=== PATIENT | male | born 2000 | race Caucasian/White ===

== ENCOUNTER 2023-10-02 00:18 | Emergency (ER) | payer OTHER, SELFPAY ==
[2023-10-02 00:26] VITALS: BP 130/60
[2023-10-02 00:38] VITALS: BMI 24.5
--- NOTE | 2023-10-02 00:41 | ED.GENMED ---
History of Present Illness
General
Chief Complaint: Flank Pain
Source: patient
Exam Limitations: none
Time Seen by Provider: 10/02/23 00:31
Travel History
Have you had any contact with someone who has COVID-19?: No
Do you have any symptoms of coronavirus? Fever > 100 degrees, chills, cough, shortness of breath, sore throat, loss of taste or smell, muscle aches, or headache?: No
History of Present Illness
History of Present Illness:
This is a 23 year old male that comes in with c/o right lower abd pain. States that he was just handing out with friends an he started with lower back pain. State that the pain migrated and went into his testicles and then back up into the right
lower abd. States that it was a stabling pain and he was nauseated. Denies any history of renal calculus. Denies any fever, chills, chest pain, SOB, vomiting, diarrhea, headache, dizziness, urinary burning.
Past History
Past History
ED Past Medical History: GERD and Other (Left hand fracture, right clavicle fracture)
ED Past Surgical History: Other (Myringotomy tubes)
Social History
Tobacco: Smoker
Alcohol: Occasional
Drug: None
Personal: Single
Living: with family
Review of Systems
Review of Systems
All Other Systems: ROS reviewed and negative except as documented in HPI and ROS
Constitutional: Reports no symptoms; Denies fever or chills
EENT: Reports no symptoms
Respiratory: Reports no symptoms; Denies cough or trouble breathing
Cardiac: Reports no symptoms; Denies chest pain
ABD/GI: Reports abdominal pain and nausea; Denies vomiting or diarrhea
: Reports no symptoms; Denies dysuria, frequency or urgency
Musculoskeletal: Reports no symptoms
Skin: Reports no symptoms
Neurological: Reports no symptoms; Denies dizzy or headache
Psychiatric: Reports no symptoms
Phy Exam
General Physical Exam
General Presentation: mild distress
General age: appears stated age
General Skin: warm and dry
General Habitus: normal
General Mental: alert
General Hydration: appears well hydrated
ENT Exam
ENT Exam: TM's normal, pharynx normal and neck supple
Eye Exam
Eye Exam: EOMI
Cardiovascular Exam
Cardiovascular Exam: regular rate/rhythm, no edema, no murmur and normal peripheral pulses
Pulmonary Exam
Pulmonary Exam: lungs clear, no respiratory distress, no rales, chest non tender, no crackles, no rhonchi, no wheezing and no cough
Gastrointestinal Exam
Gastrointestinal Exam: normal bowel sounds, soft, no organomegaly, no pulsatile mass, non distended and tender (Right lower quadrant tenderness with palpation. Negative for rebound tenderness)
Musculoskeletal Exam
Musculoskeletal Exam: full ROM and no edema
Skin Exam
Skin Exam: normal color, warm/dry, no rash and no petechia
Psychiatric Exam
Psychiatric Exam: normal mood/affect
Course
Orders/Labs/Results
Orders:
Orders
10/02/23 00:40
CT Abd/pel W Iv And Oral Contr Urgent
Comment:
Reason For Exam: Right lower abd pain
0.9% Sodium Chloride 1000 ml [Nss] 1,000 ml IV BOLUS
Iohexol [Omnipaque] See Protocol PO NOW STA
Ketorolac [Toradol] 30 mg IV NOW STA
Ondansetron Injectable [Zofran] 4 mg IV NOW STA
10/02/23 00:48
Complete Blood Count/With Diff Urgent
Comprehensive Metabolic Panel Urgent
10/02/23 02:12
Urinalysis Reflex To Culture Urgent
Date Specimen was Collected: 10/02/23
Time Specimen was Collected: 02:07
Urine Microscopic Reflex Cult Urgent
10/02/23 03:36
Tamsulosin [Flomax] 0.4 mg PO NOW STA
Abnormal Lab Results
10/02/23 10/02/23
00:48 02:12
RBC 4.25 L 10^6/uL
(4.70-6.10)
Hct 37.1 L %
(39.0-52.0)
MPV 10.6 H fL
(7.4-10.4)
Potassium 3.1 L mmol/L
(3.5-5.1)
Carbon Dioxide 21 L mmol/L
(22-30)
Glucose 130 H mg/dl
(70-99)
Ur Occult Blood Reflex 4+ A
(Negative)
Leukocyte Esterase Rfl Trace A
(Negative)
Urine RBC >100 A /HPF
(0-2)
Urine Bacteria (Reflex) Few A
(Negative)
10/02/23 00:48
10/02/23 00:48
Potassium slightly low. Glucose nonfasting. Urine negative for infection.
Vital Signs
Initial and Last Documented VS:
Initial Vital Signs
Temp Pulse Resp BP Pulse Ox
97.4 F 62 26 130/60 100
10/02/23 00:26 10/02/23 00:26 10/02/23 00:26 10/02/23 00:26 10/02/23 00:26
Last Documented Vital Signs
Temp Pulse Resp BP Pulse Ox
97.4 F 63 16 101/56 98
10/02/23 00:26 10/02/23 01:25 10/02/23 01:25 10/02/23 01:25 10/02/23 01:25
MDM/Problems Addressed
Differential Diagnosis Includes:
Appendicitis, renal calculus
MDM/Problems Addressed:
This is a 23 year old male that comes in with c/o right lower abd pain. States that he started with low back pain and then into his testicles and then into the right lower abd. States that he is nauseated.
Will get labs and CT Scan. Will medicate for pain and give IV fluids.
Back into see patient. Explained that he has a 3mm stones that is almost to the bladder. Will place patient on Flomax and have him use Tylenol and Ibuprofen for pain. Will also give Prescription for a few narcotic pain pills and Zofran. Patient to
strain his urine. Follow up with the Urologist. Return with fever, increased or changing pain.
Chronic conditions affecting care:
NA
Acute Exacerbation and/or Progression of Chronic Illness:
NA
*Radiology
Radiology exam reviewed: radiology read reviewed (CT [facility] hawk[facility] without significant hydroureteronephrosis. No bowel obstruction. Normal gallbladder and appendix. Incidentals: Bladder wall thickening, likely related to
decompresses state. Moderate stool burden. No hepatic or pancreatic mass. No abdominal aortic aneurysm. ) and other (CT cont- No acute osseous abnormality. No acute abnormality with in the visualized lungs. No acute abnormality within the visualized
soft tissues. )
*Pulse Oximetry
Patient hypoxic: no
*EKG
Interpreted by ED Provider?: NA
Rate: EKG- N/A
*Cutting Tool Sharpener Interpretation
Rate: Cutting Tool Sharpener- N/A
*Critical Care Note
Total Time (30-74mins, 75-104mins- exclusive of procedures): Not Applicable
ED Attending Note
-
Portions of this chart may have been created with voice recognition software.� Occasional wrong word or��sound alike� substitutions may have occurred due to the inherent limitations of voice recognition software.
Discharge Plan
Departure
Patient Disposition: Home (Routine Discharge)
Date of Disposition: 10/02/23
Time of Disposition: 03:39
Patient with high blood pressure during this ER visit?: No
Condition: Good
Covid-19: Not Applicable
Discharge Problem:
Renal calculus, right
Instructions: Renal Colic (DC), How to Strain Your Urine
Prescriptions:
New
tamsulosin [Flomax] 0.4 mg capsule
0.4 mg PO HS Qty: 7 0RF
ondansetron 4 mg tablet,disintegrating
4 mg PO Q8H PRN (Reason: nausea and vomiting) Qty: 7 0RF
oxycodone-acetaminophen [Percocet] 5-325 mg tablet
1 tab PO Q4HPRN PRN (Reason: pain) Qty: 7 0RF
Referrals:
Carlos Vargas DO [Family Provider] -
Terry Burrows Jr., MD [Active] - Follow up in 5-7 days
Activity Restrictions/Additional Instructions:
As discussed, your blood work shows that your potassium is a little low. Please eat a daily banana and green leafy vegetables. Your CT shows that your appendix is normal but you have a 3 mm stone that is almost to the bladder. Please increase your
water intake to 8-8oz glasses daily. You have had three prescription sent to your Pharmacy. The first is Flomax that will help relax the smooth muscle so you can pass the stone. The second is Zofran that will help with any nausea. The last is a
narcotic pain medication for severe pain. This will make you tired. Please no driving or alcohol when taking. INSTEAD OF THE NARCOTIC YOU MAY USE IBUPROFEN 600MG EVERY 6 HOURS FOR PAIN. IF YOU ARE TAKING HE NARCOTIC PAIN MEDICATION PLEASE DO NOT
TAKE ANY FURTHER TYLENOL YOU WILL EXCEED THE LIMIT. Follow up with the urologist in the next 5-7 days. IF YOU HAVE FEVER, INCREASED OR CHANGING PAIN, OR YOU HAVE ANY OTHER CONCERNS PLEASE RETURN TO THE EMERGENCY ROOM.
Interventions
Interventions:
*Risk Screen - Suicide Last Done: 10/02/23 00:26
*General Assessment Last Done: 10/02/23 00:35
*Neglect/Abuse Screening Last Done: 10/02/23 00:26
ED- Fall Risk Assessment Last Done: 10/02/23 00:46
*ED COVID-19 Vaccine History Last Done: 10/02/23 00:46
RK-Izfeum-Fyfueyuzvb Assessment Last Done: 10/02/23 00:46
ED-Male Genitourinary Assessment Last Done: 10/02/23 00:46
[2023-10-02] MEDS: NSS 1000 IV (00:49)
[2023-10-02] MEDS: ZOFRAN 4 MG IV (00:52)
[2023-10-02] MEDS: TORADOL 30 MG IV (00:53)
[2023-10-02 00:55] LABS: % Basophils 0.5 % (0-2); % Eosinophils 1.9 % (0-6); % Immature Granulocytes 0.3 % (0-0.5); % Lymphocytes 45.7 % (20.5-51.1); % Monocytes 5.7 % (1.7-9.3); % Neutrophils 45.9 % (42.2-75.2); Absolute Eosinophils 0.1 10^3/uL (0-0.7); Absolute Lymphocytes 3.4 10^3/uL (1.2-3.4); Absolute Monocytes 0.4 10^3/uL (0.1-0.6); Absolute Neutrophils 3.5 10^3/uL (1.4-6.5); Hematocrit 37.1 % (39.0-52.0); Hemoglobin 13.1 g/dL (13.0-18.0); Mean Corp Hgb Conc. 35.3 g/dL (33.0-37.0); Mean Corpuscular Hgb 30.8 pg (27.0-31.0); Mean Corpuscular Volume 87.3 fL (80.0-94.0); Mean Platelet Volume 10.6 fL (7.4-10.4); Nucleated Red Blood Cells % 0 % (-); Platelet Count 186 10^3/uL (130-400); Red Blood Cell Count 4.25 10^6/uL (4.70-6.10); Red Cell Dist. Width 12.3 % (11.5-14.5); White Blood Cell Count 7.5 10^3/uL (4.8-10.8)
[2023-10-02] MEDS: OMNIPAQUE 50 ML PO (01:00)
[2023-10-02 01:08] LABS: ALT (SGPT) 40 U/L (0-50); AST (SGOT) 34 U/L (17-59); Albumin 4.2 g/dl (3.5-5.0); Alkaline Phosphatase 60 U/L (38-126); Blood Urea Nitrogen 16 mg/dl (9-20); Calcium 9.5 mg/dl (8.4-10.2); Carbon Dioxide 21 mmol/L (22-30); Chloride 104 mmol/L (98-107); Estimated Creatinine Clearance > 125 ml/min; Glucose 130 mg/dl (70-99); Potassium 3.1 mmol/L (3.5-5.1); Sodium 140 mmol/L (135-145); Total Bilirubin 0.5 mg/dl (0.2-1.3); Total Protein 6.3 g/dl (6.3-8.2); eGFR > 60.00
[2023-10-02 01:25] VITALS: BP 101/56
[2023-10-02 02:58] LABS: Urine Albumin Negative (Neg - Trace); Urine Bilirubin Negative (Negative); Urine Character Clear (Clear); Urine Color Yellow; Urine Glucose Negative (Negative); Urine Ketone Negative (Negative); Urine Leukocyte Trace (Negative); Urine Nitrite Negative (Negative); Urine Occult Blood 4+ (Negative); Urine Specific Gravity 1.015 (<1.030); Urine Urobilinogen Negative (Neg - 1+)
[2023-10-02 03:29] LABS: Urine Bacteria Few (Negative); Urine Red Blood Cell >100 /HPF (0-2)
[2023-10-02] MEDS: FLOMAX 0.400000000000000022 MG PO (03:57)
[2023-10-02 04:10] VITALS: BP 124/69
== END 2023-10-02 04:10 | disposition home or self-care (01) ==
LOC: EMR 00:18
PROVIDERS: Clinical Nurse Specialist Family Health; EMERGENCY PHYSICIAN Student in an Organized Health Care Education/Training Program; FAMILY PHYSICIAN Family Medicine
DX: N20.0 Calculus of kidney (principal); K21.9 Gastro-esophageal reflux disease without esophagitis; F17.200 Nicotine dependence, unspecified, uncomplicated
CPT/HCPCS: 99284; 96374; 96375; 96361; 74177; 80053; 81003; 81015; 85025; Q9967

== ENCOUNTER → 2024-08-08 18:53 | Outpatient (REF) | payer OTHER, SELFPAY | LOC: RAD 18:53 | PROVIDERS: ATTENDING PHYSICIAN Nurse Practitioner Family; FAMILY PHYSICIAN Family Medicine | DX: M79.601 Pain in right arm (principal) | CPT/HCPCS: 73080; 73090 ==